=== PATIENT | male | born 1985 | race Caucasian/White ===

== ENCOUNTER 2022-09-13 12:18 | Outpatient (CLI) | payer OTHER ==
--- NOTE | 2022-09-13 18:17 | MRI Report ---
PROCEDURE: BRAIN WO INDICATIONS: DIZZINESS TECHNIQUE: Noncontrast axial T1 spin echo, axial T2 fast spin echo, sagittal and axial FLAIR, coronal T2 fast sp in echo, axial gradient echo, axial diffusion and ADC through the brain. COMPARISON: No prior studies are available for review at the time of this dictation. FINDINGS: Image quality: Excellent. CSF Spaces: Basal cisterns are patent. No extra-axial fluid collections. Ventricles are normal in size and shape. Brain: No intracranial masses or hemorrhage. Claire/white matter interface is normal. Brainstem appe ars normal. Diffusion-weighted images demonstrate no acute ischemic insult. No chronic ischemic ins ults. Normal intravascular flow voids are present. Skull and face: Calvarium has normal marrow signal. Orbits appear normal. Sinuses: Mild to moderate mucosal thickening can be seen within the ethmoid air cells and within the right sphenoid sinus. Minimal mucosal thickening can be seen elsewhere within the paranasal sinuses. No significant abnormal fluid can be seen within the mastoid air cells. IMPRESSION: No significant intracranial abnormality can be seen to the limits of this noncontrast brain MRI. Additional findings: Paranasal sinus disease Reviewed by: Altaf Quintana MD on 09/13/2022 5:16 PM AKDT Approved by: Altaf Quintana MD on 09/13/2022 5:16 PM AKDT Station ID: [id number]
== END 2022-09-13 12:19 | disposition home or self-care (01) ==
LOC: DI 12:18
DX: R42 Dizziness and giddiness (principal)

== ENCOUNTER 2022-09-18 09:39 | Outpatient (CLI) | payer OTHER ==
--- NOTE | 2022-09-18 21:14 | MRI Report ---
PROCEDURE: ANKLE WO - RT INDICATIONS: RIGHT ANKLE PAIN TECHNIQUE: Noncontrast Magnetic Resonance Imaging (MRI) of the ankle/hindfoot was performed utilizing the follow ing sequences: sagittal T1 spin echo, sagittal T2 fast spin echo with fat saturation, axial PD fast s pin echo, axial T2 fast spin echo with fat saturation, coronal T1 spin echo, and coronal T2 fast spin echo with fat saturation. COMPARISON: None. FINDINGS: Image quality: Excellent. Bones and joints: Mild osseous edema within the posterior calcaneus may be related to a healing fracture versus osseous contusion or traction trabecular bone injury. There is a prominent nonspecific osseous edema are als o seen in the posterior talus and to a lesser extent the navicular and cuboid. No hindfoot coalition. The ankle mortise is maintained. No osteochondral defect is seen at the talar dome. Mild degenerati ve spurring of the dorsal talonavicular joint. Medial structures: The deltoid ligament and the spring ligament are intact. The posterior tibialis, flexor digitorum evelin agapito, and flexor hallucis longus tendons are intact. The posterior tibial neurovascular bundle appears normal within the tarsal tunnel, without extrinsic mass effect. Lateral structures: The anterior and posterior distal tibiofibular ligaments are intact. Thickening of the anterior talof ibular ligament and calcaneofibular ligament is compatible with remote prior moderate grade sprains. The peroneus longus and peroneus brevis tendons are intact. A small ganglion cyst is seen arising fro m the lateral sinus tarsi. Anterior structures: The tibialis anterior, extensor hallucis longus, and extensor digitorum longus tendons appear intact. Posterior and plantar structures: The Achilles tendon is intact. There is moderate thickening the proximal plantar fascia without edema , consistent with chronic fasciitis. No disproportionate atrophy of the abductor digiti minimi muscle . IMPRESSION: 1.Mild osseous edema within the posterior calcaneus may be the sequela of prior trauma with healing v ersus mild acute osseous contusion or traction trabecular bone injury. Mildly heterogeneous marrow si gnal with scattered additional areas of mild nonspecific edema. 2.Remote prior grade 2 sprains of the anterior talofibular ligament and calcaneofibular ligament. 3.Moderate chronic proximal patellar fasciitis. Reviewed by: Benny Ott MD on 09/18/2022 9:12 PM PDT Approved by: Benny Ott MD on 09/18/2022 9:12 PM PDT Station ID: [id number]
== END 2022-09-18 09:40 | disposition home or self-care (01) ==
LOC: DI 09:39
PROVIDERS: ATTEND Internal Medicine Infectious Disease
DX: S93.491A Sprain of other ligament of right ankle, initial encounter (principal); S93.411A Sprain of calcaneofibular ligament of right ankle, initial encounter; M72.2 Plantar fascial fibromatosis